=== PATIENT | male | born 1975 | race Hispanic/Latino ===

== ENCOUNTER 2017-02-05 20:20 | Emergency (ER) | payer OTHER ==
[~2017-02-05] VITALS: Ht 170.2 cm; Wt 81.9 kg
[2017-02-05 20:50] LABS: HEMATOCRIT 46.9 % (38.0-50.0); MCH 31.9 PG (29.0-34.0); MCHC 34.5 G/DL (30.0-36.0); MCV 92.3 FL (86-99); RBC DIS.WIDTH-CV 12.1 % (11.8-14.6); RBC DIS.WIDTH-SD 41.2 % (39-53); RED BLOOD COUNT 5.08 M/uL (4.00-5.50); WHITE BLOOD COUNT 10.3 K/uL (4.1-10.2)
[2017-02-05 20:59] LABS: CHLORIDE 108 mEq/L (99-109); SODIUM 143 mEq/L (136-147)
[2017-02-05 21:00] LABS: GLUCOSE 97 mg/dL (70-99)
[2017-02-05 21:02] LABS: ANION GAP 13 MEQ/L (2-14)
[2017-02-05 21:04] LABS: GFR ESTIMATE (CALCULATED) > 59 mL/min/; SERUM ETHYL ALCOHOL < 10 mg/dL
[2017-02-05 21:05] LABS: UREA NITROGEN (BUN) 10 mg/dL (9-23)
[2017-02-05 21:46] LABS: MEAN PLAT.VOLUME 10.6 uM^3 (9.0-12.4); PLATELET COUNT 293 K/uL (156-360)
[2017-02-05 23:05] VITALS: BP 133/94
== END 2017-02-05 23:26 | disposition home or self-care (01) ==
LOC: EME 20:20
DX: F25.1 Schizoaffective disorder, depressive type (principal); E78.5 Hyperlipidemia, unspecified; K21.9 Gastro-esophageal reflux disease without esophagitis; F17.200 Nicotine dependence, unspecified, uncomplicated
CPT/HCPCS: 80048; 85027; 90839; 99281; 99285; G0480

== ENCOUNTER 2017-02-15 17:08 | Inpatient (IN) | payer OTHER ==
[~2017-02-15] VITALS: Ht 170.2 cm; Wt 77.2 kg
[2017-02-15] MEDS ORDERED: ABILIFY MAINTE400 M1 IM (17:42)
[2017-02-15] MEDS ORDERED: CELEXA40 MG PO (17:42)
[2017-02-15 18:23] LABS: HEMATOCRIT 48.6 % (38.0-50.0); MCH 31.5 PG (29.0-34.0); MCHC 33.5 G/DL (30.0-36.0); PLATELET COUNT 260 K/uL (156-360); RBC DIS.WIDTH-CV 12.3 % (11.8-14.6); RBC DIS.WIDTH-SD 42.9 % (39-53); RED BLOOD COUNT 5.17 M/uL (4.00-5.50); WHITE BLOOD COUNT 10.4 K/uL (4.1-10.2)
[2017-02-15 18:31] LABS: CHLORIDE 114 mEq/L (99-109); POTASSIUM 4.4 mEq/L (3.7-5.4); SODIUM 147 mEq/L (136-147)
[2017-02-15 18:33] LABS: GLUCOSE 132 mg/dL (70-99)
[2017-02-15 18:35] LABS: ANION GAP 7 MEQ/L (2-14)
[2017-02-15 18:36] LABS: SERUM ETHYL ALCOHOL < 10 mg/dL
[2017-02-15 18:37] LABS: GFR ESTIMATE (CALCULATED) > 59 mL/min/
[2017-02-15 18:38] LABS: UREA NITROGEN (BUN) 14 mg/dL (9-23)
[2017-02-15 20:29] LABS: AMPHETAMINE NEGATIVE (500 ng/mL); BARBITURATES NEGATIVE (200 ng/mL); BENZODIAZEPINES NEGATIVE (150 ng/mL); COCAINE NEGATIVE (150 ng/mL); INTERNAL CONTROLS VALID? YES; METHADONE NEGATIVE (200 ng/mL); METHAMPHETAMINE NEGATIVE (500 ng/mL); OPIATES (MORPHINE) NEGATIVE (100 ng/mL); OXYCODONE NEGATIVE (100 ng/mL); PHENCYCLIDINE NEGATIVE (25 ng/mL); PROPOXYPHENE NEGATIVE (300 ng/mL); THC CANNABINOIDS NEGATIVE (50 ng/mL); TRICYCLIC ANTIDEPRESSANTS NEGATIVE (300 ng/mL)
[2017-02-15 20:42] LABS: ADD MIUA? YES; BILIRUBIN NEGATIVE; BLOOD NEGATIVE; COLOR YELLOW ((YELLOW)); GLUCOSE (STRIP) 150; KETONES 5; LEUKOCYTES NEGATIVE; NITRITE NEGATIVE; PROTEIN (STRIP) 30; SPECIFIC GRAVITY 1.029 (1.000-1.030)
[2017-02-15 21:07] LABS: BACTERIA RARE /HPF; EPITHELIAL CELLS RARE /HPF; MUCUS 2+ /LPF; RED BLOOD CELLS 0-5 /HPF (0-5); UCUL ADDED? NO; WHITE BLOOD CELLS 0-5 /HPF (0-5)
[2017-02-15 22:49] VITALS: BP 133/81
[2017-02-16 07:29] VITALS: BP 143/75
[2017-02-16 14:48] VITALS: BP 165/85
[2017-02-17 12:48] VITALS: BP 150/95
[2017-02-17 16:13] VITALS: BP 141/88
[2017-02-18 07:44] VITALS: BP 134/83
[2017-02-18] MEDS ORDERED: CELEXA40 MG PO (09:08)
[2017-02-18] MEDS ORDERED: ARIPIPRAZOLE10 MG PO (09:08)
== END 2017-02-18 10:10 | disposition home or self-care (01) | DRG 885 ==
LOC: EME 17:08 → 1WEST 20:00 → EDOF 20:00 → 1WEST 20:00
PROVIDERS: Emergency Medicine
DX: F25.1 Schizoaffective disorder, depressive type (principal); R45.851 Suicidal ideations; F14.20 Cocaine dependence, uncomplicated; R73.9 Hyperglycemia, unspecified; E87.8 Other disorders of electrolyte and fluid balance, not elsewhere classified; R45.850 Homicidal ideations; Z56.0 Unemployment, unspecified
CPT/HCPCS: 80048; 81003; 85027; 90837; 97150 GO; 97165 GO; 99281; 99285; G0480

== ENCOUNTER 2017-07-08 17:56 | Emergency (ER) | payer OTHER ==
[~2017-07-08] VITALS: Ht 170.2 cm; Wt 73.2 kg
[~2017-07-08 17:56] MED LIST: ABILIFY MAINTE400 M1 IM; ARIPIPRAZOLE10 MG PO; CELEXA40 MG PO
[2017-07-08 21:00] LABS: HEMATOCRIT 46.3 % (38.0-50.0); MCH 32.7 PG (29.0-34.0); MCV 93.3 FL (86-99); MEAN PLAT.VOLUME 10.6 uM^3 (9.0-12.4); PLATELET COUNT 254 K/uL (156-360); RBC DIS.WIDTH-CV 12.6 % (11.8-14.6); RBC DIS.WIDTH-SD 43.3 % (39-53); RED BLOOD COUNT 4.96 M/uL (4.00-5.50); WHITE BLOOD COUNT 8.7 K/uL (4.1-10.2)
[2017-07-08 21:14] LABS: CHLORIDE 112 mEq/L (99-109); POTASSIUM 3.5 mEq/L (3.7-5.4); SODIUM 145 mEq/L (136-147)
[2017-07-08 21:15] LABS: GLUCOSE 59 mg/dL (70-99)
[2017-07-08 21:17] LABS: ANION GAP 11 MEQ/L (2-14)
[2017-07-08 21:19] LABS: GFR ESTIMATE (CALCULATED) > 59 mL/min/; SERUM ETHYL ALCOHOL 98 mg/dL
[2017-07-08 21:21] LABS: UREA NITROGEN (BUN) 8 mg/dL (9-23)
[2017-07-08 21:23] LABS: SALICYLATE < 5.0 MG/DL (15-30)
[2017-07-08 21:53] LABS: AMPHETAMINE NEGATIVE (500 ng/mL); BARBITURATES NEGATIVE (200 ng/mL); BENZODIAZEPINES NEGATIVE (150 ng/mL); COCAINE NEGATIVE (150 ng/mL); INTERNAL CONTROLS VALID? YES; METHADONE NEGATIVE (200 ng/mL); METHAMPHETAMINE NEGATIVE (500 ng/mL); OPIATES (MORPHINE) NEGATIVE (100 ng/mL); OXYCODONE NEGATIVE (100 ng/mL); PHENCYCLIDINE NEGATIVE (25 ng/mL); PROPOXYPHENE NEGATIVE (300 ng/mL); THC CANNABINOIDS NEGATIVE (50 ng/mL); TRICYCLIC ANTIDEPRESSANTS NEGATIVE (300 ng/mL)
[2017-07-08] MEDS ORDERED: CELEXA20 MG PO (22:31)
[2017-07-08] MEDS ORDERED: ABILIFY5 MG PO (22:31)
[2017-07-08 23:09] VITALS: BP 115/81
== END 2017-07-08 23:10 | disposition home or self-care (01) ==
LOC: EME 17:56
PROVIDERS: Emergency Medicine
DX: F25.1 Schizoaffective disorder, depressive type (principal); K21.9 Gastro-esophageal reflux disease without esophagitis; E78.5 Hyperlipidemia, unspecified; F17.200 Nicotine dependence, unspecified, uncomplicated
CPT/HCPCS: 80048; 85027; 90839; 99281; 99284; G0480

== ENCOUNTER 2018-04-28 13:37 | Emergency (ER) | payer OTHER ==
[~2018-04-28] VITALS: Ht 170.2 cm; Wt 68.6 kg
[~2018-04-28 13:37] MED LIST changes: +ABILIFY5 MG PO; +CELEXA20 MG PO
[2018-04-28 15:05] LABS: HEMATOCRIT 40.8 % (38.0-50.0); HEMOGLOBIN 14.1 G/DL (12.5-16.6); MCH 33.3 PG (29.0-34.0); MCHC 34.6 G/DL (30.0-36.0); MCV 96.2 FL (86-99); PLATELET COUNT 210 K/uL (156-360); RBC DIS.WIDTH-CV 12.5 % (11.8-14.6); RBC DIS.WIDTH-SD 43.8 % (39-53); RED BLOOD COUNT 4.24 M/uL (4.00-5.50); WHITE BLOOD COUNT 6.6 K/uL (4.1-10.2)
[2018-04-28 15:23] LABS: CHLORIDE 107 mEq/L (99-109); POTASSIUM 4.1 mEq/L (3.7-5.4); SODIUM 142 mEq/L (136-147)
[2018-04-28 15:25] LABS: GLUCOSE 133 mg/dL (70-99)
[2018-04-28 15:28] LABS: SERUM ETHYL ALCOHOL < 10 mg/dL
[2018-04-28 15:29] LABS: GFR ESTIMATE (CALCULATED) > 59 mL/min/ (58.99-99999); UREA NITROGEN (BUN) 11 mg/dL (9-23)
[2018-04-28] MEDS ORDERED: ABILIFY10 MG PO (15:34)
[2018-04-28] MEDS ORDERED: CITALOPRAM HBR40 MG PO (15:34)
[2018-04-28 15:49] LABS: AMPHETAMINE NEGATIVE (500 ng/mL); BARBITURATES NEGATIVE (200 ng/mL); BENZODIAZEPINES NEGATIVE (150 ng/mL); BUPRENORPHINE NEGATIVE (10 ng/mL); COCAINE PRESUMPTIVE POSITIVE (150 ng/mL); METHADONE NEGATIVE (200 ng/mL); METHAMPHETAMINE NEGATIVE (500 ng/mL); OPIATES (MORPHINE) NEGATIVE (100 ng/mL); OXYCODONE NEGATIVE (100 ng/mL); PHENCYCLIDINE NEGATIVE (25 ng/mL); PROPOXYPHENE NEGATIVE (300 ng/mL); THC CANNABINOIDS NEGATIVE (50 ng/mL); TRICYCLIC ANTIDEPRESSANTS NEGATIVE (300 ng/mL)
[2018-04-28 16:55] VITALS: BP 145/100
== END 2018-04-28 17:01 | disposition home or self-care (01) ==
LOC: EME 13:37
DX: F25.9 Schizoaffective disorder, unspecified (principal); F19.10 Other psychoactive substance abuse, uncomplicated; K21.9 Gastro-esophageal reflux disease without esophagitis; E78.5 Hyperlipidemia, unspecified; F17.200 Nicotine dependence, unspecified, uncomplicated; Z98.890 Other specified postprocedural states
CPT/HCPCS: 80048; 84999; 85027; 99281; 99284; G0480

== ENCOUNTER 2018-06-19 22:32 | Emergency (ER) | payer OTHER ==
[~2018-06-19] VITALS: Ht 167.6 cm; Wt 80.0 kg
[~2018-06-19 22:32] MED LIST changes: +ABILIFY10 MG PO; +CITALOPRAM HBR40 MG PO
[2018-06-20 03:51] VITALS: BP 103/72
== END 2018-06-20 03:57 | disposition short-term general hospital (02) ==
LOC: EME 22:32
DX: H05.231 Hemorrhage of right orbit (principal); S02.32XA Fracture of orbital floor, left side, initial encounter for closed fracture; S01.111A Laceration without foreign body of right eyelid and periocular area, initial encounter; S02.40FA Zygomatic fracture, left side, initial encounter for closed fracture; S02.2XXA Fracture of nasal bones, initial encounter for closed fracture; Y04.0XXA Assault by unarmed brawl or fight, initial encounter; Z23 Encounter for immunization; E78.5 Hyperlipidemia, unspecified; K21.9 Gastro-esophageal reflux disease without esophagitis; F25.9 Schizoaffective disorder, unspecified; F17.200 Nicotine dependence, unspecified, uncomplicated
CPT/HCPCS: 70450; 70480; 72125; 99281; 99285